=== PATIENT | male | born 1945 | race Caucasian/White ===

== ENCOUNTER 2016-10-19 14:35 | Emergency (ER) | payer OTHER ==
[2016-10-19 13:13] LABS: BASOPHILS 0.5 %; BASOPHILS ABSOLUTE 0.03 10/3/uL (0.0-0.16); EOSINOPHILS ABSOLUTE 0.12 10/3/uL (0.0-0.53); HEMOGLOBIN 13.6 g/dL (13.6-17.8); IMMATURE GRANULOCYTES 0.3 %; IMMATURE GRANULOCYTES ABSOLUTE 0.02 10/3/uL (0.0-0.11); LYMPHOCYTES ABSOLUTE 0.95 10/3/uL (0.67-4.30); MEAN CORPUSCULAR HEMOGLOB 30.6 pg (26.0-34.0); MEAN CORPUSCULAR VOLUME 89.9 fL (80-100); MEAN PLATELET VOLUME 10.9 fL (9.2-13.0); MONOCYTES 8.8 %; MONOCYTES ABSOLUTE 0.52 10/3/uL (0.21-1.20); NEUTROPHILS 72.4 %; NEUTROPHILS ABSOLUTE 4.28 10/3/uL (2.02-8.40); PLATELET COUNT 120 10/3/uL (150-400); RED CELL COUNT 4.45 10/6/uL (4.7-6.1); WHITE BLOOD CELLS 5.9 10/3/uL (4.5-10.5)
[2016-10-19 13:14] LABS: MANUAL DIFF NO %
[2016-10-19 13:17] LABS: ASCORBIC ACID (UR NOT ORDER) NEG (NEG); BILIRUBIN, URINE NEGATIVE (NEG); ER URINALYSIS TAT 0 Hrs 08 Mins; KETONE, URINE TRACE MG/DL (NEG); LEUKOCYTE ESTERASE(NOT OR NEG (NEG); NITRITE (URINE) NEG (NEG); WBC (NOT ORDERED) (RFLEX) < 1 (0-5)
[2016-10-19 13:29] LABS: A/G RATIO 0.9 (0.7-1.9); ALBUMIN 3.1 G/DL (3.5-5.0); CALCIUM, SERUM 8.5 MG/DL (8.5-10.4); CHLORIDE, SERUM 107 MMOL/L (96-112); CO2 (CARBON DIOXIDE) 27 MMOL/L (24-34); CREATININE 1.08 MG/DL (0.70-1.30); DIRECT BILIRUBIN 0.4 MG/DL (0.0-0.4); GFR AFRICAN AMERICAN 78 ML/MIN (>=60); GFR NON AFRICAN AMERICAN 68 ML/MIN (>=60); GLOBULIN 3.4 G/DL (2.5-4.1); GLUCOSE, SERUM 128 MG/DL (60-99); SGOT(AST) 35 U/L (5-40); SGPT(ALT) 35 U/L (5-65); SODIUM, SERUM 142 MMOL/L (135-148); TOTAL PROTEIN 6.5 G/DL (6.0-8.5)
[2016-10-19 13:33] LABS: ALKALINE PHOSPHATASE 143 U/L (45-117); BUN (BLOOD UREA NITROGEN) 14 MG/DL (6-23); INDIRECT BILIRUBIN(NOT ORDER) 0.3 MG/DL (0.1-0.9); TOTAL BILIRUBIN 0.7 MG/DL (0-1.2)
[~2016-10-19 14:35] MED LIST: ACET500CAP PO; APRES25 PO; ARICEPT10 PO; ASAEC PO; B12100T PO; CLIN200 PO; COREG25 PO; GLUCOSAMINEPO PO; K-TABS10 MEQ PO; L40 PO; LEVAQUIN750 MG PO; LISINOPRIL40 MG PO; MULTIVIT/MIN PO; NORV10 PO; OTC EYE DROP OPH; OTC VITAMIN D PO; ULTRAM50 PO; ZOFRAN ODT4 MG PO
[2016-11-10] MEDS ORDERED: POTASSIUM GLUCONATE PO (09:24)
[2016-11-10] MEDS ORDERED: GARLIC PO (09:25)
== END 2016-10-19 16:00 | disposition home or self-care (01) ==
LOC: ER 14:35
PROVIDERS: Emergency Medicine
DX: R10.31 Right lower quadrant pain (principal); R11.2 Nausea with vomiting, unspecified; M79.1 Myalgia; I10 Essential (primary) hypertension; Z87.442 Personal history of urinary calculi; Z85.46 Personal history of malignant neoplasm of prostate; Z79.899 Other long term (current) drug therapy
CPT/HCPCS: 74176; 80053; 81001; 82248; 83690; 85025; 96374; 96375; 99284; C9113; J2405; J2800

== ENCOUNTER 2016-11-16 06:21 | Day surgery (SDC) | payer OTHER ==
[2016-11-09 14:56] LABS: HEMOGLOBIN 13.4 g/dL (13.6-17.8)
[2016-11-09 15:11] LABS: BUN (BLOOD UREA NITROGEN) 9 MG/DL (6-23); CHLORIDE, SERUM 107 MMOL/L (96-112); CO2 (CARBON DIOXIDE) 31 MMOL/L (24-34); CREATININE 1.23 MG/DL (0.70-1.30); GFR AFRICAN AMERICAN 67 ML/MIN (>=60); GFR NON AFRICAN AMERICAN 58 ML/MIN (>=60); GLUCOSE, SERUM 100 MG/DL (60-99); POTASSIUM, SERUM 3.3 MMOL/L (3.5-5.3); SODIUM, SERUM 140 MMOL/L (135-148)
[2016-11-09 16:55] LABS: ASCORBIC ACID (UR NOT ORDER) NEG (NEG); BILIRUBIN, URINE NEGATIVE (NEG); KETONE, URINE NEGATIVE (NEG); LEUKOCYTE ESTERASE(NOT OR NEG (NEG); WBC (NOT ORDERED) (RFLEX) 2 (0-5)
--- NOTE | ~2016-11-16 | OP ---
Record Of Operation [facility] [address] [place]. [address] NAME: KALEN ROGEL : 41 STATUS : REG [facility] PAT#: [id number] AGE: 71 ADM/REG DATE : 11/16/16 MR#: [id number] REPORT SERV DATE: 11/16/16 DICTATED BY: DAO ZAIDI DATE: 11/16/16 REPORT STATUS : Draft TRANSCRIBED BY: MODL DATE: 11/16/16 DATE OF PROCEDURE: 11/16/2016 TITLE OF OPERATION: 1. Cystourethroscopy. 2. Bilateral retrograde pyelogram. 3. Right ureteroscopy. 4. Bladder biopsy with fulguration. 5. Removal of scrotal tick. PREOPERATIVE DIAGNOSIS: Right renal stone. POSTOPERATIVE DIAGNOSES: 1. Passed right renal stone. 2. Left hydronephrosis. 3. Bladder lesion, unspecified. 4. Scrotal tick. INDICATIONS: Mr. Rogel is a 71-year-old male, with a history of a distal left ureteral stone, status post treatment in the past. He has a moderately atrophic left kidney. He was found to have a right renal stone with pain and recurrent UTIs. He is here for treatment. ANESTHESIA: General. COMPLICATIONS: None. IMPLANTS: 18-[place] Citizen coude catheter. SPECIMEN: Bladder lesion. NARRATIVE: The patient was brought to the operating room, identified by his wristband. General anesthesia was induced and Levaquin was given for preoperative antibiotics. He was placed in dorsal lithotomy position, prepped and draped in sterile fashion. Prior to doing this, a tick was noticed on his scrotum. It was grasped with a hemostats and removed. The tick was crushed and discarded. He was then prepped and draped in sterile fashion. A cystoscope was placed into his urethra into his bladder. The bladder was notable for a less than 1 cm lesion on the trigone, it was not consistent with urothelial cancer. I biopsied this area with flexible biopsy forceps and sent to Pathology as bladder lesion for permanent analysis. The site was fulgurated with a Bugbee electrode. The ureters were not involved. Next, a right retrograde pyelogram was shot with a 5-[place] Citizen open-ended catheter. There was no hydronephrosis. There were no obvious stones in the kidney. A wire was placed up to the level of the renal pelvis. A flexible ureteroscope was placed over the wire. The kidney was inspected, all major calices were inspected. There were no stones. This is most consistent with a passed renal stone. The ureter was inspected on the way out and no stones were noted in the ureter. The ureter was uninjured, and the ureteroscopy was atraumatic, the decision was made to not leave a stent. A retrograde pyelogram was shot on the left Record Of Operation [address] [address] NAME: KALEN ROGEL : 41 STATUS : REG [facility] PAT#: [id number] AGE: 71 ADM/REG DATE : 11/16/16 MR#: [id number] REPORT SERV DATE: 11/16/16 DICTATED BY: DAO ZAIDI DATE: 11/16/16 REPORT STATUS : Draft TRANSCRIBED BY: STELLA DATE: 11/16/16 side which showed a normal ureter and a chronically dilated left renal pelvis. There is no filling defects concerning for stones. The bladder was drained. An 18-[place] Citizen coude catheter was placed. The balloon was inflated to 10 mL of sterile water. The patient was awoken from anesthesia and transferred to recovery room in stable condition. I will see him back in two weeks. JAMIE/STELLA Dao Zaidi MD / [id number] CC: MD Dulce Basilio M.D.
[~2016-11-16 06:21] MED LIST changes: +GARLIC PO; +POTASSIUM GLUCONATE PO
== END 2016-11-16 15:08 | disposition home or self-care (01) ==
LOC: SDC 06:21
PROVIDERS: Urology
PROC: BT14ZZZ Fluoroscopy of Kidneys, Ureters and Bladder (ICD-10-PCS; 2016-11-16)
PROC: 0TBB8ZX Excision of Bladder, Via Natural or Artificial Opening Endoscopic, Diagnostic (ICD-10-PCS; principal; 2016-11-16 07:45)
DX: N20.0 Calculus of kidney (principal); N13.30 Unspecified hydronephrosis; N32.89 Other specified disorders of bladder; I10 Essential (primary) hypertension; E78.00 Pure hypercholesterolemia, unspecified; M54.5 Low back pain; G89.29 Other chronic pain; M19.90 Unspecified osteoarthritis, unspecified site; Z87.442 Personal history of urinary calculi
CPT/HCPCS: 74420; 80048; 81001; 85014; 85018; 88305; 93005; A9270-GY; C1726; C1758; J2405; J2710; J3010; Q9967